=== PATIENT | male | born 1960 | race Caucasian/White ===

== ENCOUNTER 2016-07-26 13:19 | Emergency (ER) | payer MEDICARE | END 2016-07-26 16:57 | disposition home or self-care (01) | LOC: FER 13:19 | DX: S61.011A Laceration without foreign body of right thumb without damage to nail, initial encounter (principal); Z98.52 Vasectomy status; Z23 Encounter for immunization; W22.8XXA Striking against or struck by other objects, initial encounter; Y92.009 Unspecified place in unspecified non-institutional (private) residence as the place of occurrence of the external cause | CPT/HCPCS: 73140; 90471; 90715 ==